=== PATIENT | female | born 1980 | race Caucasian/White ===

== ENCOUNTER → 2017-06-09 | Outpatient (CLI) | payer OTHER ==
[~2017-06-09] MED LIST: HYDR-1838 PO; HYDR25SU20 PR; Iron Supplement PO; PRED20TA PO
== END | disposition home or self-care (01) ==
LOC: C.LABSPEC 15:44
PROVIDERS: ATTEND Physician Assistant
DX: L29.8 Other pruritus (principal)

== ENCOUNTER → 2017-06-28 | Outpatient (CLI) | payer OTHER | END | disposition home or self-care (01) | LOC: C.LABSPEC 17:36 | PROVIDERS: ATTEND Physician Assistant | DX: N94.9 Unspecified condition associated with female genital organs and menstrual cycle (principal) ==

== ENCOUNTER 2017-08-19 06:46 | Emergency (ER) | payer OTHER ==
[~2017-08-19] VITALS: Ht 170.2 cm; Wt 82.0 kg
[2017-08-19 06:50] VITALS: Ht 170.2 cm; Wt 82.0 kg
--- NOTE | 2017-08-19 07:12 | EMERGENCY ROOM VISIT NOTE ---
History Report prepared by Ok: Cathy Tang Under the Supervision of: Dr. Abran Ortiz M.D. First contact with patient: 06:58 Chief Complaint: URINARY SYMPTOMS Stated Complaint: URINARY URGENCY,FREQUENCY Nursing Triage Summary: Pt reports urinary freq and urgency that started last week. Intermittent burning with urination. Tested at urgent care on Mon for a UTI, neg. Lower back pain. Denies n/v. History of Present Illness The patient is a 36 year old white female with a past medical history of ulcerative colitis s/p colectomy, hypertension who presents to the ED with a cc of persistent urinary symptoms beginning 1 week ago. Patient tested negative for UTI earlier this week. Positive urinary frequency, urinary urgency, low back pain, chills. Negative nausea, vomiting, fever, hematuria, change in bowel movement. Patient denies any strain, sprain, or heavy lifting. Her menstrual period just ended. She admits to occasional alcohol use, denies tobacco or drug use. She is on control. She denies any history of UTI or kidney stone. Source of History: patient Onset: 1 week ago Position: other (global) Quality: other (urinary symptoms) Timing: other (persistent) Associated Symptoms: + chills, + back pain, No fevers, No nausea, No vomiting Review of Systems See HPI for pertinent positives and negatives. A total of ten systems were reviewed and were otherwise negative. Past Medical & Surgical Medical Problems: (1) Benign hypertension (2) section (3) Colectomy (4) Proctitis (5) Ulcerative colitis (6) [place] Teeth Removal Family History Cancer Hypertension Social History Smoking Status: Never Smoker Alcohol Use: occasionally Drug Use: none Marital Status: Housing Status: lives with family Occupation Status: employed Current/Historical Medications Scheduled Control Pills ( Control Pills), 1 TAB PO DAILY Cephalexin (Keflex), 1 CAP PO BID Hydroxyzine Pamoate (Vistaril), 1 CAP PO BID Loperamide Hcl (Imodium), 2 MG PO AMPM Multivitamin (Multivitamin), 1 TAB PO DAILY Allergies Coded Allergies: Morphine (Unverified Adverse Reaction, Intermediate, nausea, 08/19/17) Physical Exam Vital Signs Date Time Temp Pulse Resp B/P (MAP) Pulse Ox O2 Delivery O2 Flow Rate FiO2 08/19/17 09:24 36.8 76 18 140/88 99 08/19/17 08:52 76 18 140/88 99 Room Air 08/19/17 06:50 36.8 95 18 129/72 99 Room Air Physical Exam GENERAL: Awake, alert, well-appearing, NAD HENT: Normocephalic, atraumatic. EYES: Normal conjunctiva. Sclera non-icteric. NECK: Supple. No nuchal rigidity. FROM. RESPIRATORY: CTAB, no rhonchi, wheezing, crackles CARDIAC: RRR, no MRG ABDOMEN: Soft, NTND, BS+ MSK: No chest wall TTP, no LE edema NEURO: GCS 15, CN 2-12 intact, moves all 4s on command SKIN: No rash or jaundice noted. Medical Decision & Procedures ER Provider Diagnostic Interpretation: Xray results as stated below per my and radiologist interpretation: KUB CLINICAL HISTORY: prior procedures, urinary frequency pain COMPARISON STUDY: 01/17/2013 FINDINGS: Small bowel distention post colectomy. Anastomotic site right upper quadrant as well as low soft tissue pelvis. IMPRESSION: Findings consistent with partial distal small bowel obstruction of uncertain etiology. Extensive postoperative change as discussed. The above report was generated using voice recognition software. It may contain grammatical, syntax or spelling errors. Electronically signed by: Jeffery Cleary M.D. 08/19/2017 7:51 AM Dictated Date/Time: 08/19/2017 7:43 AM Laboratory Results Test 08/19/17 07:00 Urine Color YELLOW Urine Appearance CLEAR (CLEAR) Urine pH 6.5 (4.5-7.5) Urine Specific [place] 1.010 (1.000-1.030) Urine Protein NEG (NEG) Urine Glucose (UA) NEG (NEG) Urine Ketones NEG (NEG) Urine Occult Blood NEG (NEG) Urine Nitrite NEG (NEG) Urine Bilirubin NEG (NEG) Urine Urobilinogen NEG (NEG) Urine Leukocyte Esterase TRACE (NEG) Urine WBC (Auto) 1-5 /hpf (0-5) Urine RBC (Auto) 0-4 /hpf (0-4) Urine Hyaline Casts (Auto) 0 /lpf (0-5) Urine Epithelial Cells (Auto) >30 /lpf (0-5) Urine Bacteria (Auto) NEG (NEG) Urine Test NEG (NEG) Laboratory results reviewed by me Medications Administered Medications (Trade) Dose Ordered Sig/Norman Route Start Time Stop Time Status Last Admin Dose Admin Cephalexin Monohydrate (Keflex Cap) 500 mg NOW ONCE PO 08/19/17 07:45 08/19/17 07:46 DC 08/19/17 07:50 500 MG ED Course 0659: The patient was evaluated in room B12B. A complete history and physical exam was performed. 0828: I reevaluated the patient. She has no nausea, vomiting, or abdominal pain. She has eaten recently. 0849: I discussed the patient's case with Saray Gurrola PA-C, [facility] [place]. She agrees that there is no need for CT or more blood work. Patient can follow up with surgeon as needed. 0852: I reevaluated the patient. Discussed results and discharge instructions: She verbalized understanding and agreement. The patient is ready for discharge. Medical Decision The patient is a 36 year old white female with a past medical history of ulcerative colitis s/p colectomy, hypertension who presents to the ED with a cc of persistent urinary symptoms beginning 1 week ago. Differential diagnosis: Etiologies such as renal colic, appendicitis, diverticulitis, mesenteric ischemia, aortic pathology, infections, inflammatory bowel disease, PUD, biliary pathology, UTI, as well as others were entertained. Patient was seen and evaluated at the bedside. Patient has complained of persistent urinary symptoms including urinary frequency and urgency that been ongoing for turgor 1 week. Patient states she was recently seen in urgent care where she had a negative urinalysis. Patient otherwise denies any nausea or vomiting. No fevers or chills. On exam the patient has no abdominal discomfort. She is urinalysis appears negative. However, given the patient's persistent symptoms and with sounds most likely like a UTI we will treat. Patient's UPT negative. Patient did have a KUB that was completed which showed partial SBO. I discussed the patient w/ EGS PA given findings on KUB w/ lack of ab pain n/v. They agree that they do not believe there is any necessity to get a CT or blood work given that the patient is otherwise fairly asymptomatic. I did discuss the findings and treatment with the patient. We did discuss that if her symptoms persist she could discuss with her PCP as to whether not she's having any bladder spasm. Patient was agreeable to the plan of care. Patient was able tolerate by mouth. Patient was given strict follow-up, discharge, and return precautions. All questions were answered. Patient was deemed suitable for outpatient follow-up at this time. Patient agreed with the plan of care and was safely discharged home. The chart was completed utilizing [employer] voice recognition software. Grammatical errors, random word insertions, pronoun errors, and incomplete sentences are an occasional consequence of this system due to software limitations, ambient noise, and hardware issues. Any formal questions or concerns about the content, text, or information contained within the body of this dictation should be directly addressed to the physician for clarification. Medication Reconcilliation Current Medication List: was personally reviewed by me Blood Pressure Screening Patient's blood pressure: Elevated blood pressure Blood pressure disposition: Elevated BP felt to be situational Consults Time Called: 806 Consulting Physician: Saray Gurrola PA-C, [facility] [place] Returned Call: 08 I discussed the patient's case with her. She agrees that there is no need for CT or more blood work. Patient can follow up with surgeon as needed. Impression Primary Impression: UTI (urinary tract infection) Additional Impressions: Symptoms of urinary tract infection Partial small bowel obstruction Scribe Attestation The scribe's documentation has been prepared under my direction and personally reviewed by me in its entirety. I confirm that the note above accurately reflects all work, treatment, procedures, and medical decision making performed by me. Departure Information Dispostion Home / Self-Care Prescriptions Hydroxyzine Pamoate (VISTARIL) 25 Mg Cap 1 CAP PO BID for Anxiety/Agitation for 3 Days, #6 CAP 1 Refill Prov: Abran Ortiz M.D. 08/19/17 Cephalexin (KEFLEX) 500 Mg Cap 1 CAP PO BID for 7 Days, #14 CAP Prov: Abran Ortiz M.D. 08/19/17 Referrals No Doctor, Assigned (PCP) Patient Instructions ED UTI Cystitis Female, My [facility] Additional Instructions Please return to the emergency department if you have worsening or recurrent symptoms not amenable to at-home treatment. Please call for a follow-up appointment with her primary care physician. Please take your medications as prescribed. If you have other concerns and/or complaints please feel free to also call your primary care physician's office or return the ED for further evaluation, management, and treatment. You may take 600 mg Ibuprofen every 6 hours as needed for pain with food for no more than 2 consecutive days. You may take tylenol 1000 mg every 6 hours as needed for pain. You may take motrin and tylenol separately or at the same time. Take your medications as prescribed. If taking an antibiotic consider taking a probiotic and/or eating yogurt, but at the least, please take with food as it can cause upset stomach. If culture results are not available at discharge, if they are positive for concern of infection, you will be informed of the results as soon as they are available. You have been examined and treated today on an emergency basis only. This is not a substitute for, or an effort to provide, complete comprehensive medical care. It is impossible to recognize and treat all injuries or illnesses in a single emergency department visit. It is therefore important that you follow up closely with [facility], your PCP, and/or your specialist(s). Call as soon as possible for an appointment. Thank you for your time and consideration. I look forward to speaking with you again soon. Please don't hesitate to call us if you have any questions. Problem Qualifiers Primary Impression: UTI (urinary tract infection) Urinary tract infection type: acute cystitis Hematuria presence: without hematuria Qualified Codes: N30.00 - Acute cystitis without hematuria
[2017-08-19] MEDS ORDERED: MULT-506 PO (07:20)
[2017-08-19] MEDS ORDERED: IMD/2 PO (07:20)
[2017-08-19] MEDS ORDERED: BCPILLS PO (07:20)
[2017-08-19] MEDS ORDERED: CEPH-571 PO (07:38)
[2017-08-19] MEDS ORDERED: CEPHALEXIN MONOHYDRATE 250 MG CAP PO ONE (07:45)
--- NOTE | 2017-08-19 07:53 | DIAGNOSTIC IMAGING REPORT ---
KUB CLINICAL HISTORY: prior procedures, urinary frequency pain COMPARISON STUDY: 01/17/2013 FINDINGS: Small bowel distention post colectomy. Anastomotic site right upper quadrant as well as low soft tissue pelvis. IMPRESSION: Findings consistent with partial distal small bowel obstruction of uncertain etiology. Extensive postoperative change as discussed. The above report was generated using voice recognition software. It may contain grammatical, syntax or spelling errors. Electronically signed by: Jeffery Cleary M.D. 08/19/2017 7:51 AM Dictated Date/Time: 08/19/2017 7:43 AM
[2017-08-19] MEDS ORDERED: HYDR25CA PO (09:01)
[2017-08-19 09:24] VITALS: BP 140/88; PULSE 76; TEMP 36.8; O2SAT 99
== END 2017-08-19 09:00 | disposition home or self-care (01) ==
LOC: C.EDB 06:47
DX: N39.0 Urinary tract infection, site not specified (principal); K56.600 Partial intestinal obstruction, unspecified as to cause; Z90.49 Acquired absence of other specified parts of digestive tract; I10 Essential (primary) hypertension; Z79.3 Long term (current) use of hormonal contraceptives; Z80.9 Family history of malignant neoplasm, unspecified; Z82.49 Family history of ischemic heart disease and other diseases of the circulatory system; Z79.899 Other long term (current) drug therapy

== ENCOUNTER → 2017-08-20 | Outpatient (CLI) | payer OTHER ==
[~2017-08-20] MED LIST changes: +BCPILLS PO; +CEPH-571 PO; -HYDR-1838 PO; +HYDR25CA PO; -HYDR25SU20 PR; +IMD/2 PO; -Iron Supplement PO; +MULT-506 PO; -PRED20TA PO
== END | disposition home or self-care (01) ==
LOC: C.LABSPEC 17:34
PROVIDERS: ATTEND Obstetrics & Gynecology
DX: N76.0 Acute vaginitis (principal)